=== PATIENT | male | born 1960 | race African-American/Black ===

== ENCOUNTER 2019-03-28 18:55 | Inpatient (IN) ==
[2019-03-28] MEDS ORDERED: hydrALAZINE 20 MG/1 ML VIAL IV STA (19:43)
[2019-03-28 19:49] LABS: Basophils # 0.1 10*3/uL (0.0-0.2); Basophils % 0.7 % (0.0-0.8); Eosinophils % 0.5 % (0.00-10.9); Hematocrit 32.5 VOL% (42.0-52.0); Immature Granulocytes % 0.5 %; Immature Granulocytes Absolute 0.04 #; Lymphocytes % 11.2 % (21.2-54.2); Mean Corpuscular HGB Conc 30.8 GM/DL (32-36); Mean Corpuscular Volume 92.9 FL (87-102); Mean Platelet Volume 10.5 FL (9.6-12.0); Monocytes % 3.6 % (1.7-12.7); Neutrophils % 83.5 % (38.7-73.9); Platelet Count 308 T/CUMM (130-400); Red Cell Distribution Width 12.7 % (9.3-17.3); White Blood Count 8.5 T/CUMM (4-12)
[2019-03-28 19:56] LABS: PT Patient Result 10.5 SECS (9.6-12.2)
[2019-03-28 20:02] LABS: Albumin 3.5 G/DL (3.4-5.0); Bilirubin,Total 0.4 MG/DL (0.2-1.0); Calcium 8.8 MG/DL (8.5-10.1); Osmolality,Calculated 295.1 MOS/KG (273-304); Total Protein 7.3 G/DL (6.4-8.3)
[2019-03-28] MEDS ORDERED: LABETALOL 20 MG/4 ML SYRINGE IV ONE (20:45)
[2019-03-28] MEDS ORDERED: LABETALOL 20 MG/4 ML SYRINGE IV STA (20:50)
[2019-03-28] MEDS ORDERED: ACETAMINOPHEN 325 MG TABLET PO PRN (21:16)
[2019-03-28] MEDS ORDERED: hydrALAZINE 20 MG/1 ML VIAL IV PRN (21:26)
[2019-03-28] MEDS ORDERED: SODIUM POLYSTYRENE SULFATE 15 GM/60 ML BOTTLE PO STA (21:28)
[2019-03-28] MEDS ORDERED: GLUCAGON 1 MG VIAL IM PRN (21:30)
[2019-03-28] MEDS ORDERED: DEXTROSE 50% 25 GM/50 ML VIAL IV PRN (21:30)
[2019-03-28] MEDS: INSULIN REGULAR 100 UNIT/ML SUBCUT SCH (21:41)
[2019-03-29] MEDS: INSULIN REGULAR 100 UNIT/ML SUBCUT SCH ×6 (01:48→21:58)
[2019-03-29 08:18] LABS: Basophils % 0.4 % (0.0-0.8); Eosinophils # 0.2 10*3/uL (0.0-0.87); Eosinophils % 2.5 % (0.00-10.9); Hematocrit 31.2 VOL% (42.0-52.0); Hemoglobin 9.8 GM/DL (14.0-18.0); Immature Granulocytes % 0.4 %; Immature Granulocytes Absolute 0.04 #; Lymphocytes # 1.8 10*3/uL (1.4-4.0); Lymphocytes % 18.6 % (21.2-54.2); Mean Corpuscular HGB Conc 31.4 GM/DL (32-36); Mean Corpuscular Volume 91.8 FL (87-102); Mean Platelet Volume 10.7 FL (9.6-12.0); Monocytes % 7.7 % (1.7-12.7); Neutrophils % 70.4 % (38.7-73.9); Platelet Count 305 T/CUMM (130-400); Red Cell Distribution Width 12.9 % (9.3-17.3); White Blood Count 9.7 T/CUMM (4-12)
[2019-03-29 08:41] LABS: Albumin 3.3 G/DL (3.4-5.0); Bilirubin,Total 0.7 MG/DL (0.2-1.0); Osmolality,Calculated 297.7 MOS/KG (273-304); Total Protein 7.3 G/DL (6.4-8.3)
[2019-03-29] MEDS: PREGABALIN 100 MG CAPSULE PO SCH (08:42)
[2019-03-29] MEDS: PANTOPRAZOLE 40 MG TABLET PO SCH (08:43)
[2019-03-29] MEDS: INSULIN ASPART PROTAMINE/ASPART 70/30 100 UNIT/ML SUBCUT SCH (08:44)
[2019-03-29] MEDS ORDERED: amLODIPine 5 MG TABLET PO SCH (09:00)
[2019-03-29 10:01] LABS: Calcium 8.6 MG/DL (8.5-10.1)
[2019-03-29] MEDS: carvediloL 6.25 MG TABLET PO SCH ×2 (10:07→21:58)
[2019-03-29] MEDS: amLODIPine 10 MG TABLET PO SCH (10:07)
[2019-03-29] MEDS: ENOXAPARIN 30 MG/0.3 ML SYRINGE SUBCUT SCH ×2 (12:30→21:58)
[2019-03-29 13:58] LABS: Apearance,Urine CLEAR (Clear); Bilirubin,Urine Negative (Negative); Blood, Urine Moderate mg/dL (Negative); Glucose,Urine (UA) 150 mg/dL (Negative); Hyaline Casts,Urine 1 /LPF (0-3); Ketones,Urine Negative (Negative); Nitrite,Urine Negative (Negative); Protein,Urine >=500 MG/DL; RBC,Urine 9 /HPF (0-4); Urine Color Straw (Yellow); Urine Specific Gravity 1.012 (1.001-1.035); Urine Urobilinogen < 2.0 EU/DL (0.2-1.0); WBC,Urine <1 /HPF (0-6)
[2019-03-29 14:00] LABS: Protein/Creatinine Ratio,Urine 2.4 RATIO
[2019-03-29 14:03] LABS: Barbiturates Screen,Urine Negative (Negative); Benzodiazepines Screen,Urine Negative (Negative); Cannabinoid Screen,Urine Negative (Negative); Opiate Screen,Urine Negative (Negative); Phencyclidine Screen,Urine Negative (Negative)
[2019-03-29] MEDS ORDERED: INSULIN ASPART PROTAMINE/ASPART 70/30 100 UNIT/ML SUBCUT SCH (19:00)
[2019-03-29] MEDS: SIMVASTATIN 10 MG TABLET PO SCH (21:57)
[2019-03-30] MEDS: INSULIN REGULAR 100 UNIT/ML SUBCUT SCH ×6 (03:16→21:49)
[2019-03-30] MEDS: INSULIN ASPART PROTAMINE/ASPART 70/30 100 UNIT/ML SUBCUT SCH ×2 (07:09→13:07)
[2019-03-30] MEDS ORDERED: DEXTROSE 10% 250 ML BAG IV PRN (07:31)
[2019-03-30] MEDS: PANTOPRAZOLE 40 MG TABLET PO SCH (10:01)
[2019-03-30] MEDS: carvediloL 6.25 MG TABLET PO SCH ×2 (10:01→21:48)
[2019-03-30] MEDS: amLODIPine 10 MG TABLET PO SCH (10:01)
[2019-03-30] MEDS: PREGABALIN 100 MG CAPSULE PO SCH (10:01)
[2019-03-30] MEDS ORDERED: INSULIN ASPART PROTAMINE/ASPART 70/30 100 UNIT/ML SUBCUT SCH (16:30)
[2019-03-30] MEDS ORDERED: DEXTROSE 10% 25 GM/250 ML BAG IV PRN (16:32)
[2019-03-30] MEDS ORDERED: GLUCAGON 1 MG VIAL IM PRN (16:32)
[2019-03-30 16:56] LABS: Calcium 8.5 MG/DL (8.5-10.1); Osmolality,Calculated 296.8 MOS/KG (273-304)
[2019-03-30] MEDS: ENOXAPARIN 30 MG/0.3 ML SYRINGE SUBCUT SCH (21:48)
[2019-03-30] MEDS: SIMVASTATIN 10 MG TABLET PO SCH (21:48)
[2019-03-31] MEDS: INSULIN REGULAR 100 UNIT/ML SUBCUT SCH ×5 (03:08→13:11)
[2019-03-31 06:46] LABS: Calcium 8.3 MG/DL (8.5-10.1); Osmolality,Calculated 303.4 MOS/KG (273-304)
[2019-03-31] MEDS: INSULIN ASPART PROTAMINE/ASPART 70/30 100 UNIT/ML SUBCUT SCH (09:06)
[2019-03-31] MEDS ORDERED: SODIUM POLYSTYRENE SULFATE 15 GM/60 ML BOTTLE PO ONE (09:06)
[2019-03-31] MEDS: carvediloL 6.25 MG TABLET PO SCH (09:09)
[2019-03-31] MEDS: PREGABALIN 100 MG CAPSULE PO SCH (09:09)
[2019-03-31] MEDS: amLODIPine 10 MG TABLET PO SCH (09:09)
[2019-03-31] MEDS: PANTOPRAZOLE 40 MG TABLET PO SCH (09:09)
[2019-03-31] MEDS ORDERED: FUROSEMIDE 40 MG TABLET PO SCH (11:00)
[2019-03-31 11:44] VITALS: BP 144/82
== END 2019-03-31 13:45 | disposition home or self-care (01) | DRG 683 ==
LOC: EDBD → EDUNIT# → N.EDINP 18:55 → N.ED 18:55 → SUATTDRO 21:16 → N.5E 21:51
PROVIDERS: ADMIT Internal Medicine; ATTEND Internal Medicine